=== PATIENT | male | born 1955 | race Caucasian/White ===

== ENCOUNTER 2017-04-26 10:40 | Emergency (ER) | payer MEDICAID ==
[~2017-04-26] VITALS: Ht 180.3 cm; Wt 85.0 kg
[2017-04-26 10:43] VITALS: BP 144/88
== END 2017-04-26 13:11 | disposition left against medical advice (07) ==
LOC: ER 10:50
DX: S61.227A Laceration with foreign body of left little finger without damage to nail, initial encounter (principal); Z53.21 Procedure and treatment not carried out due to patient leaving prior to being seen by health care provider; X58.XXXA Exposure to other specified factors, initial encounter; Y93.89 Activity, other specified; Y92.89 Other specified places as the place of occurrence of the external cause; Y99.8 Other external cause status
CPT/HCPCS: X7700; Z7610